=== PATIENT | male | born 1980 | race Caucasian/White ===

== ENCOUNTER 2021-04-26 09:36 | Emergency (ER) | payer BC ==
[2021-04-26 11:04] VITALS: BP 113/76; PULSE 65
--- NOTE | 2021-04-26 11:32 | EDM.PDOC ---
ED HPI GENERAL MEDICAL PROBLEM - General Chief Complaint: Lower Extremity Injury/Pain Stated Complaint: FOOT INJURY Time Seen by Provider: 04/26/21 11:10 Source of Information: Reports: Patient, RN Notes Reviewed History Limitations: Reports: No Limitations - History of Present Illness INITIAL COMMENTS - FREE TEXT/NARRATIVE: Patient is a 40-year-old male who presents to the ER for evaluation of his right foot injury. Patient states that he awoke early Tuesday morning at around 3 AM due to his fire alarms going off, he does have children that live in the basement so he went to go check on his children, states he rushed down the stairs and thinks he may have planted a little bit hard at the end of the stairs, and has had right heel pain since this incident. He went to work that day, and everything seemed to be okay but it was very tender and he is wanted to walk on his tippy toes for most of the day. He states that he woke up this morning, and that his foot seemed a little bit more stiff, and he states that also the muscles in his right leg seem to be more stiff due to walking on his tippy toe yesterday. Patient denies any other sick-like symptoms, fever/chills, cough/shortness of breath, nausea/vomiting/diarrhea. Denying any numbness or tingling into his foot. Right Ankle Pain Score (Numeric/FACES): 9 - Related Data Allergies Allergy/AdvReac Type Severity Reaction Status Date / Time No Known Allergies Allergy Verified 04/26/21 11:04 Home Meds: Home Meds [place]-3/DHA/Epa/Fish Oil [Fish Oil] 1,000 mg PO DAILY 02/04/16 [History] Omeprazole Magnesium [Prilosec Otc] 20 mg PO DAILY 02/04/16 [History] Past Medical History - Past Health History Medical/Surgical History: Denies Medical/Surgical History Gastrointestinal History: Reports: GERD - Infectious Disease History Infectious Disease History: Reports: Novel Coronavirus Social & Family History - Family History Family Medical History: No Pertinent Family History - Tobacco Use Tobacco Use Status *Q: Never Tobacco User Second Hand Smoke Exposure: No - Caffeine Use Caffeine Use: Reports: Coffee - Recreational Drug Use Recreational Drug Use: No Review of Systems - Review of Systems Review Of Systems: Comprehensive ROS is negative, except as noted in HPI. ED EXAM, GENERAL - Physical Exam Exam: See Below Exam Limited By: No Limitations General Appearance: Alert, WD/WN, No Apparent Distress Respiratory/Chest: No Respiratory Distress, Lungs Clear, Normal Breath Sounds, No Accessory Muscle Use, Chest Non-Tender Cardiovascular: Normal Peripheral Pulses, Regular Rate, Rhythm, No Edema Peripheral Pulses: 2+: Dorsalis Pedis (L), Dorsalis Pedis (R) Extremities: Normal Inspection, Normal Capillary Refill Neurological: Alert, Oriented, Normal Cognition, No Motor/Sensory Deficits Psychiatric: Normal Affect, Normal Mood Skin Exam: Warm, Dry, Intact, Normal Color, No Rash Course - Vital Signs Last Recorded V/S: Last Vital Signs Temp 96.5 F L 04/26/21 10:45 Pulse 65 04/26/21 10:45 Resp 16 04/26/21 10:45 BP 113/76 04/26/21 10:45 Pulse Ox 97 04/26/21 10:45 - Orders/Labs/Meds Orders: Active Orders 24 hr Category Date Time Status Ankle Min 3V Rt [CR] Stat Exams 04/26/21 10:45 Taken Foot Comp Min 3V Rt [CR] Stat Exams 04/26/21 10:43 Taken DME for Discharge [COMM] Routine Oth 04/26/21 11:30 Ordered - Re-Assessments/Exams Free Text/Narrative Re-Assessment/Exam: 04/26/21 11:29 Patient presents to the ER for his left foot pain. X-rays were taken at the time of triage, and it does appear that he has fractured a heel spur on his right foot. This is likely the source of his pain, we will go ahead and have him observe conservative measures and keep him nonweightbearing with crutches apply Leobardo wrap as needed for compression ice and elevate as tolerated. Departure - Departure Time of Disposition: 11:31 Disposition: Home, Self-Care 01 Condition: Good Clinical Impression: Heel spur Qualifiers: Laterality: right Qualified Code(s): M77.31 - Calcaneal spur, right foot Heel bone fracture Qualifiers: Encounter type: initial encounter Calcaneus location: unspecified portion of calcaneus Fracture type: closed Fracture alignment: nondisplaced Laterality: right Qualified Code(s): S92.001A - Unspecified fracture of right calcaneus, initial encounter for closed fracture - Discharge Information *PRESCRIPTION DRUG MONITORING PROGRAM REVIEWED*: No *COPY OF PRESCRIPTION DRUG MONITORING REPORT IN PATIENT [place]: No Instructions: Heel Spur Referrals: PCP,None [Primary Care Provider] - Forms: ED Department Discharge Additional Instructions: You have been evaluated in the ED for your right heel pain. Your x-ray demonstrated a fracture of a heel spur on your right foot. This might be bothersome for some time, and you have been given you crutches to keep nonweightbearing as tolerated; Until you can bear weight without much pain Please use ice as tolerated to the affected area. Please try to elevate the affected area to relieve swelling. You may take Tylenol 500 mg or ibuprofen 600mg q6 hrs for pain relief. Please do so until you have a tolerable level of pain with activity. Do not exceed 4000mg Tylenol or 3200mg ibuprofen in a 24 hour time period. Please follow-up with your regular provider for re-evaluation, if your injury is not feeling much better in roughly 7 to 10 days time. Please return to ED if your symptoms should change or worsen. Sepsis Event Note (ED) - Evaluation Sepsis Screening Result: No Definite Risk - Focused Exam Vital Signs: Vital Signs Temp Pulse Resp BP Pulse Ox 04/26/21 10:45 96.5 F L 65 16 113/76 97 - My Orders Last 24 Hours: My Active Orders 04/26/21 10:43 Foot Comp Min 3V Rt [CR] Stat 04/26/21 10:45 Ankle Min 3V Rt [CR] Stat 04/26/21 11:30 DME for Discharge [COMM] Routine - Assessment/Plan Last 24 Hours: My Active Orders 04/26/21 10:43 Foot Comp Min 3V Rt [CR] Stat 04/26/21 10:45 Ankle Min 3V Rt [CR] Stat 04/26/21 11:30 DME for Discharge [COMM] Routine
--- NOTE | 2021-04-27 11:39 | CR ---
Right ankle: 4 views of the right ankle were obtained. Comparison: No prior right ankle study is available. Small fracture is noted within a plantar spur. Joint spaces within the ankle are preserved. No additional fracture, dislocation or other bony abnormality is appreciated. Impression: 1. Small fracture within a plantar spur. 2. Right ankle study is otherwise unremarkable. Diagnostic code #3
--- NOTE | 2021-04-27 11:39 | CR ---
Right foot: 4 views of the Right foot were obtained. Comparison: No prior foot exam is available. Small spur is noted off the plantar margin of the calcaneus which shows evidence of a lucent line compatible with a small fracture. Joint spaces are maintained within the right foot. No additional fracture, dislocation or other bony abnormality is appreciated. Impression: 1. Small fracture within a plantar spur. 2. Right foot exam is otherwise unremarkable. Diagnostic code #3
== END 2021-04-26 12:14 | disposition home or self-care (01) ==
LOC: JD.ED 09:36
DX: S92.001A Unspecified fracture of right calcaneus, initial encounter for closed fracture (principal); M77.31 Calcaneal spur, right foot; K21.9 Gastro-esophageal reflux disease without esophagitis; Z79.899 Other long term (current) drug therapy; X50.1XXA Overexertion from prolonged static or awkward postures, initial encounter
CPT/HCPCS: 73610-26-RT; 73610-RT; 73630-26-RT; 73630-RT; 99283-25

== ENCOUNTER 2022-04-01 07:54 | Emergency (ER) | payer BC ==
[2022-04-01] MEDS ORDERED: Acetaminophen 325 MG Tab PO ONE (08:45)
[2022-04-01] MEDS ORDERED: traMADol 50 MG Tab PO ONE (10:17)
[2022-04-01 11:12] VITALS: BP 109/74; PULSE 62
== END 2022-04-01 10:55 | disposition home or self-care (01) ==
LOC: JD.ED 07:54
DX: S22.42XA Multiple fractures of ribs, left side, initial encounter for closed fracture (principal); Z79.899 Other long term (current) drug therapy; Z86.16 Personal history of COVID-19; W19.XXXA Unspecified fall, initial encounter
CPT/HCPCS: 71101; 99283; A9270; 99284

== ENCOUNTER 2022-12-11 09:50 | Emergency (ER) | payer BC ==
[2022-12-11 10:00] VITALS: BP 124/88; PULSE 88
[2022-12-11] MEDS ORDERED: Lidocaine/EPINEPHrine/Tetracaine Soln 1 ML TOP ONE (10:02)
== END 2022-12-11 11:00 | disposition home or self-care (01) ==
LOC: JD.ED 09:50
DX: S01.01XA Laceration without foreign body of scalp, initial encounter (principal); K21.9 Gastro-esophageal reflux disease without esophagitis; Z86.16 Personal history of COVID-19; Z79.899 Other long term (current) drug therapy; Y93.01 Activity, walking, marching and hiking; W22.8XXA Striking against or struck by other objects, initial encounter; Y92.513 Shop (commercial) as the place of occurrence of the external cause
CPT/HCPCS: 12001; 99282; 99283; J3490